=== PATIENT | female | born 2000 | race Caucasian/White ===

== ENCOUNTER 2021-03-23 15:43 | Emergency (ER) | payer SELFPAY ==
[~2021-03-23] VITALS: Ht 157.5 cm; Wt 63.6 kg
[2021-03-23 16:48] LABS: COLLECTION METHOD CLEAN CATCH
[2021-03-23 16:51] LABS: HEMOGLOBIN 11.3 g/dl (12.5-16.0); MEAN CELL VOLUME 78 fl (80.0-100.0); MEAN CORPUSCULAR HEMOGLOBIN 25 pg (27.0-31.0); MEAN CORPUSCULAR HGB CONC 32 g/dl (33.0-37.0); MEAN PLATELET VOLUME 9.5 fl (7.4-10.4); PLATELET COUNT 421 K/mm3 (130-400); RED BLOOD COUNT 4.48 M/mm3 (4.10-5.30); REDCELL DISTRIBUTION WIDTH-CV 14.7 % (11.5-14.5)
[2021-03-23 16:57] LABS: AMORPHOUS CRYSTAL Present /uL; PH 5 (5-8); SQUAMOUS EPITHELIAL None Seen /hpf; URINE APPEARANCE Turbid; URINE BACTERIA None Seen /hpf; URINE BILIRUBIN Negative (NEGATIVE); URINE BLOOD 1+ (NEGATIVE); URINE COLOR Yellow; URINE GLUCOSE Negative (NEGATIVE); URINE KETONE 1+ (NEGATIVE); URINE LEUKOCYTE ESTERASE Negative (NEGATIVE); URINE NITRATE Negative (NEGATIVE); URINE PROTEIN(semi-quant) 3+ (NEGATIVE); URINE RBC None Seen /hpf; URINE UROBILINOGEN Negative (NEGATIVE)
[2021-03-23 17:04] LABS: ALBUMIN 3.3 gm/dL (3.5-5.0); BILIRUBIN,TOTAL 0.4 mg/dL (0.0-1.0); CALCIUM 8.1 mg/dL (8.4-10.2); CREATININE, serum 0.78 (0.52-1.25); POTASSIUM 3.1 mmol/L (3.4-5.0); TOTAL PROTEIN 7.3 gm/dL (6.4-8.2)
[2021-03-23 17:05] LABS: HEMATOCRIT 34.9 % (37.0-47.0)
[2021-03-23 17:15] LABS: C-REACTIVE PROTEIN 25.7 mg/dL (0.0-0.9)
[2021-03-23 18:20] LABS: BAND 29 % (0-10); LYMPHOCYTE 14 % (20.0-51.0); MICROCYTOSIS 1+; NEUTROPHILS 52 % (42.0-75.2); PLATELET ESTIMATE INCREASED (NORMAL)
[2021-03-23] MEDS ORDERED: CIPRO 500MG TA500 MG PO (18:34)
[2021-03-23] MEDS ORDERED: FLAGYL500 MG PO (18:34)
[2021-03-23] MEDS ORDERED: ZOFRAN ODT4 MG PO (19:00)
[2021-03-23 20:02] VITALS: BP 108/61; PULSE 123; TEMP 100.8
== END 2021-03-23 20:02 | disposition home or self-care (01) ==
LOC: COL.ER 15:43
PROVIDERS: Nurse Practitioner
DX: K52.9 Noninfective gastroenteritis and colitis, unspecified (principal)
CPT/HCPCS: J2405; J7030; Q9967